=== PATIENT | male | born 1995 | race Caucasian/White ===

== ENCOUNTER 2019-05-17 20:23 | Emergency (ER) | payer OTHER ==
[~2019-05-17] VITALS: Ht 172.7 cm; Wt 104.3 kg
[2019-05-17] MEDS ORDERED: NORVASC5 MG (20:56)
[2019-05-17] MEDS ORDERED: PEPCID40 MG (20:58)
[2019-05-17] MEDS ORDERED: SPIRONOLACTONE25 MG (20:59)
[2019-05-17] MEDS ORDERED: CIPRO500 MG PO (21:25)
== END 2019-05-17 21:51 | disposition home or self-care (01) ==
LOC: ER 20:23
DX: S91.342A Puncture wound with foreign body, left foot, initial encounter (principal); W26.8XXA Contact with other sharp object(s), not elsewhere classified, initial encounter; Y93.89 Activity, other specified; Y92.89 Other specified places as the place of occurrence of the external cause; Y99.8 Other external cause status

== ENCOUNTER 2019-05-20 10:52 | Emergency (ER) | payer OTHER ==
[~2019-05-20] VITALS: Ht 172.7 cm; Wt 102.1 kg
[~2019-05-20 10:52] MED LIST: CIPRO500 MG PO; NORVASC5 MG; PEPCID40 MG; SPIRONOLACTONE25 MG
== END 2019-05-20 13:06 | disposition home or self-care (01) ==
LOC: ER 10:52
DX: B34.9 Viral infection, unspecified (principal); R68.83 Chills (without fever)